=== PATIENT | male | born 1985 | race Caucasian/White ===

== ENCOUNTER 2024-07-28 16:15 | Outpatient (CLI) | payer BC, SELFPAY ==
--- NOTE | ~2024-07-28 | XR_ITS ---
[id number] Ordering provider: Kyrie Rdz, PA History: . LEFT TRAPEZIUS MUSCLE STRAIN . Comparison: None. FINDINGS: VERTEBRAL BODIES: Normal height and alignment. No visible fracture or subluxation. The dens is intact . DISK SPACES: Well maintained. PARASPINOUS SOFT TISSUES: No prevertebral soft tissue swelling. IMPRESSION: No acute osseous abnormality cervical spine. Reviewed, dictated and finalized at location A.
== END 2024-07-28 16:16 | disposition home or self-care (01) ==
PROVIDERS: PCP Physician Assistant; Visit Provider Physician Assistant
DX: S29.012A Strain of muscle and tendon of back wall of thorax, initial encounter (principal)
CPT/HCPCS: 72040

== ENCOUNTER 2025-05-14 11:13 | Emergency (ER) | payer OTHER, BC, SELFPAY ==
--- NOTE | ~2025-05-14 | XR_ITS ---
EXAMINATION: XR shoulder RT min 2V DATE: 05/14/2025 11:38 INDICATION: Right shoulder pain post lifting injury with palpable pop TECHNIQUE: AP internally and externally rotated, AP oblique externally rotated and axillary views of the right shoulder were obtained. COMPARISON: None FINDINGS: Normal alignment. No fracture. Glenohumeral joint is normal. Mild acromioclavicular osteoarthritis. Soft tissues are unremarkable./Portion of the right lung are clear. IMPRESSION: Mild right acromioclavicular osteoarthritis. No acute osseous abnormality. Reviewed, dictated and finalized at location A.
--- NOTE | 2025-05-14 11:20 | ED.UPPEXIN ---
HPI - Extremity Injury (Upper) General Chief Complaint: Extremity Injury, Upper Stated Complaint: shoulder pain Time Seen by Provider: 05/14/25 11:23 Source: patient Mode of arrival: ambulatory Limitations: no limitations History of Present Illness HPI narrative: 40 y/o male presented for c/o right shoulder pain. Onset today while at work. 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 Says he thinks it was dislocated, but not anymore. Pain has improved slightly since onset because he has not been using the arm. Endorses pain with movement only, worse with anterior movement. Could not finish his work. Has not taken anything for pain. denies numbness, tingling, weakness, radiating pain, discoloration, neck pain or back pain. Pt is right hand dominant. Related Data Allergies Allergy/AdvReac Type Severity Reaction Status Date / Time No Known Allergies Allergy Unverified 09/02/16 11:08 Review of Systems Review of Systems: CONSTITUTIONAL: Denies body aches, fever, chills CARDIOVASCULAR: Denies chest pain, palpitations, or edema. RESPIRATORY: Denies cough or dyspnea. SKIN: Denies rash, itching, or wounds. MUSCULOSKELETAL: reports right shoulder pain denies back pain, neck pain NEUROLOGIC: Denies headache, numbness, tingling, or weakness. All systems reviewed & are unremarkable except as noted in HPI and below PMFSH Comments At time of signature, I have reviewed and agree with nursing past medical, surgical, social and family history unless otherwise noted. Please see nursing chart for further information. There is no relevant family history pertinent to the presenting complaint Exam Narrative: GENERAL: Well-appearing CHEST: Speaks in full sentences. No respiratory distress. HEART: Regular rate and rhythm. Normal and equal peripheral pulses. EXTREMITIES: Right shoulder decreased range of motion due to pain; pain reported with >90 degree movement anterior/lateral movement. Pain reported with supination and posterior movement. RUE has normal strength and sensation, equal hand authorization representative. No bruising. No point tenderness. No open wounds or obvious deformity; alignment normal, pulse palpable and equal bilaterally, skin warm, dry, pink. Capillary refill less than 3 seconds. SKIN: Warm, dry, no rash. NEURO: Alert and oriented x3. PSYCH: Normal mood and affect Course Course Emergency Course: Patient is aware of diagnosis, understands and agrees to treatment plan. Anticipatory guidance given. Patient agrees to follow-up as directed and is aware of reasons to seek care at the emergency department. Portions of this record may have been created with voice recognition software Level of Care: Express Care Visit Vital Signs Vital signs: Vital Signs Temperature 97.3 F L 05/14/25 11:24 Pulse Rate 80 05/14/25 11:24 Respiratory Rate 18 05/14/25 11:24 Blood Pressure 134/88 05/14/25 11:24 Pulse Oximetry 98 05/14/25 11:24 Oxygen Delivery Room Air 05/14/25 11:24 Temperature 97.3 F L 05/14/25 11:24 Pulse Rate 80 05/14/25 11:24 Respiratory Rate 18 05/14/25 11:24 Blood Pressure 134/88 05/14/25 11:24 Pulse Oximetry 98 05/14/25 11:24 Oxygen Delivery Room Air 05/14/25 11:24 Reviewed MDM - Extremity Injury (Upper) MDM Narrative Medical decision making narrative: Discussed physical exam findings and xray. Reviewed RX and pt will need to f/u if sx persist. Advised supportive measures and signs/symptoms to go to the ER. Pt is appropriate for outpt treatment and f/u. Differential Diagnosis Differential diagnosis: Likely other (Shoulder dislocation, clavicle fracture, humerus fracture, scapular fracture, acromioclavicular joint injury, rotator cuff tear, bicep tendon rupture, tricep tendon rupture, cervical radiculopathy) Imaging Data Radiologist's impression: Patient: [place] : 1985 MR#: [id number] Age: 40 Acct:[id number] Loc: [facility] ADM Date: 05/14/25Attending Dr: Ordering Physician: Shannon Dejesus APRN Date of Service: 05/14/25 Procedure(s): XR shoulder RT min 2V Accession Number(s): [id number] cc: Shannon Dejesus APRN; RESTAURANT AND BAR MANAGER PHYSICIAN~ EXAMINATION: XR shoulder RT min 2V DATE: 05/14/2025 11:38 INDICATION: Right shoulder pain post lifting injury with palpable pop TECHNIQUE: AP internally and externally rotated, AP oblique externally rotated and axillary views of the right shoulder were obtained. COMPARISON: None FINDINGS: Normal alignment. No fracture. Glenohumeral joint is normal. Mild acromioclavicular osteoarthritis. Soft tissues are unremarkable./Portion of the right lung are clear. IMPRESSION: Mild right acromioclavicular osteoarthritis. No acute osseous abnormality. Discharge Plan Discharge Clinical Impression: Acute shoulder pain Patient Disposition: Home Condition: Stable Instructions: Antibiotic Form, Shoulder Pain (ED) Additional Instructions: Rest. Avoid pushing, pulling, lifting or anything that worsens the symptoms Gentle passive range of motion activity until symptoms are resolved. Tylenol 1000mg every 8 hours as needed You can alternate with ibuprofen 800mg as prescribed Cyclobenzaprine (Flexeril) is a muscle relaxer. Take it as directed. It can cause drowsiness so do not drive or operate machinery until you know how it makes you feel. Alternate ice/heat to the site. Lidocaine or salon pas pain patch or use pain cream like icy/hot or biofreeze. Follow up with technical services specialist as needed in 3 days Recommend establishing with a primary care provider. Go to the ER for worsening symptoms or concerns Patient Language: Tajik Prescriptions: New cyclobenzaprine 10 mg tablet 10 mg PO TID PRN (Reason: muscle spasm) Qty: 10 0RF ibuprofen 800 mg tablet 800 mg PO TID PRN (Reason: pain) Qty: 15 0RF Follow-up/Referrals: Lionel Vyas MD [Physician] - PHYSICIAN,RESTAURANT AND BAR MANAGER [Primary Care Provider] - Stand Alone Forms: Work/School Release IP Time of Disposition: 12:11
[2025-05-14 11:24] VITALS: BP 134/88; PULSE 80; RESP 18; TEMP 36.3; O2SAT 98
== END 2025-05-14 12:22 | disposition home or self-care (01) ==
PROVIDERS: Emergency Provider Nurse Practitioner Family; Referring Provider Family Medicine
DX: M25.511 Pain in right shoulder (principal)
CPT/HCPCS: 73030; 99213; G0463

== ENCOUNTER 2025-06-07 11:43 | Inpatient (IN) | payer BC, SELFPAY ==
[2025-06-07] VITALS (31 sets, daily range): BP systolic 115–157; BP diastolic 69–107; PULSE 64–92; RESP 13–29; TEMP 36.5–36.8; O2SAT 95–99; BMI 26.9
--- NOTE | ~2025-06-07 | XR_ITS ---
Examination: XR chest 1V portable Clinical History: chest pain Comparison: None Technique: Portable AP Findings: Heart size normal. Lungs clear. No acute bony abnormality. IMPRESSION: 1. No acute cardiopulmonary findings given portable technique. Can consider PA and lateral films with deep inspiration if clinical suspicion persists. Reviewed, dictated and finalized at location A.
--- NOTE | 2025-06-07 11:46 | ECG_ITS ---
Test Date: 2025-06-07 11:47:48 Measurements Intervals [place] Rate: 88 P: 51 WI: 170 QRS: -45 QRSD: 91 T: 53 QT: 348 QTc: 422 Interpretive Statements SINUS RHYTHM POSSIBLE LEFT ATRIAL ENLARGEMENT [-0.1mV P-WAVE IN V1/V2] LEFT ANTERIOR FASCICULAR BLOCK [QRS AXIS <= -45, QR IN I, RS IN II] ANTEROSEPTAL MYOCARDIAL INFARCTION , OF INDETERMINATE AGE [40+ ms Q WAVE IN V1-V4] No previous ECG available for comparison Electronically Signed On 06-07-2025 12:26:59 CDT by Aleksandar Rene M.D.
[2025-06-07 12:01] LABS: Hematocrit 50.1 % (42.0-52.0); Hemoglobin 17.2 g/dL (14.0-18.0); Immature Granulocyte Percent A 0.5 % (0-0.5); Lymphocytes Absolute Auto 3.11 K/mm3 (0.9-3.2); Mean Corpuscular HGB Conc 34.3 g/dl (32-36); Mean Corpuscular Hemoglobin 31.2 pg (26-34); Mean Corpuscular Volume 90.9 fl (80-100); Nucleated Red Blood Cells Absolute Auto 0.000 K/mm3 (0.0-0.012); Nucleated Red Blood Cells Perc 0.0 % (0.0-0.2); Platelet Count Result 229 k/mm3 (150-375); Red Blood Count 5.51 M/mm3 (4.6-6.20); White Blood Count 12.1 K/mm3 (4.5-10.0)
[2025-06-07 12:14] LABS: Alanine Aminotransferase 29 U/L (6-50); Albumin Level 4.5 g/dL (3.5-5.1); Alkaline Phosphatase 75 U/L (38-126); Anion Gap 10 mmol/L (4-12); Aspartate Amino Transferase 34 U/L (17-59); Bilirubin,Total 0.4 mg/dL (0.2-1.3); Blood Urea Nitrogen 13 mg/dL (9-20); Calcium 9.2 mg/dL (8.4-10.2); Carbon Dioxide 22 mmol/L (22-30); Chloride 106 mmol/L (98-107); Estimated CRCL calculation 95 ml/min; Estimated Glomerular Filt Rate > 60; Glucose 123 mg/dL (65-110); Potassium 3.8 mmol/L (3.4-5.0); Sodium 138 mmol/L (137-145); Total Protein 7.6 g/dL (6.3-8.2)
[2025-06-07 12:15] LABS: INR 1.0; Prothrombin Time 13.1 Seconds (11.1-14.7)
[2025-06-07 12:16] LABS: Partial Thromboplastin Time 27.9 Seconds (22.3-36.8)
[2025-06-07 12:25] LABS: Troponin I < 0.012 ng/mL (0.000-0.034)
--- NOTE | 2025-06-07 12:25 | ED.CHESTPAIN ---
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 It was otherwise nonradiating however at that time he did note that he had some bilateral tingling in his hands. The pain was 5/10 in severity and he felt dizzy. He was diaphoretic and a co-worker noted that he was read/flushed but this was brief and resolved on reassessment. Not associated with shortness of breath, nausea, vomiting, fevers, chills. He has a chronic cough which he attributes to smoking but otherwise no acute changes. No recent surgeries or trauma. He denies any edema. Not on exogenous hormones. Denies hemoptysis. No prior DVT or PE. He did recently see his primary care physician and had blood work done which showed that his cholesterol was a little elevated. He did use the risk calculator which she had not been a smoker showed low risk and no need to start medication but because he is a smoker the recommendation was to start nutrition are there still having share decision making. He is supposed to undergo further test fair because his hemoglobin was also elevated. He smokes 1 and half to 2 packs per day. Had a stress test when he was in his 20s but otherwise denies underlying respiratory or cardiac issues and does not follow with a municipal court magistrate. This has never happened before. EMS administered aspirin and NTG which helped, currently without symptoms. He takes no prescription medications daily, only 1 omeprazole per day. Cardiac risk factors HTN: No HLD: Yes DM: No Obese: No per height/weight obtained today Smoker: Yes Personal history MT/TIA/CVA: No Fam Hx MT in first degree relative <65yo: Yes, both mother and father Related Data Home Medications ?Medication ?Instructions ?Recorded ?Confirmed ?Last Taken ?Type No Home Medications 06/07/25 06/07/25 Unknown History Allergies Allergy/AdvReac Type Severity Reaction Status Date / Time No Known Allergies Allergy Verified 06/07/25 11:55 [facility] Past Medical History Medical History (Updated 06/08/25 @ 09:34 by Aleksandar Rene MD) Tobacco use GERD (gastroesophageal reflux disease) HLD (hyperlipidemia) Surgical History Surgical History No history of previous surgery Family History Family History Father , 62yo Acute myocardial infarction, Onset Age: 62 Mother H/O heart artery stent Acute myocardial infarction 55 or 57yo Lung cancer Social History Social History Social History: Smoking packs per day: 1.5 Smoking cigarettes per day: 30.0 Smoking status: Current every day smoker Tobacco type: cigarettes Second hand tobacco smoke exposure: Yes Additional smoking assessment comments: 1.5-2 PPD Alcohol intake: never Substance use: never Lack of Transportation: No Lack of Food: Never True Current Housing: I Have Housing Concerned About Future Housing: No Difficulty Paying Gas/Electric Bills: No Difficulty Paying for Meds: No Currently Unemployed: No Education: High School Diploma/GED Difficulty w/ Childcare or Family Care: No Living arrangements: with family Additional living arrangements comments: Occupation/Education: occupation Spiritual care concerns: No Exam Narrative: GENERAL: Well-appearing, well-nourished, and in no acute distress. HEAD: Normocephalic, atraumatic. EYES: Non injected, non icteric ENT: Nares clear, no rhinorrhea or epistaxis. Gross auditory acuity intact. NECK: Supple. No meningismus. CHEST: Speaking in full sentences. No respiratory distress. Lungs clear to auscultation bilaterally without wheezes crackles or focal consolidation appreciated HEART: Regular rate and rhythm. . ABDOMEN: Soft, nondistended. No rigidity or guarding. Not peritoneal EXTREMITIES: Normal range of motion. No lower extremity edema. SKIN: Warm, dry, no rash. NEURO: No focal deficits. Alert and oriented. Answering questions. Following commands. Normal speech without aphasia or dysarthria. PSYCH: Normal mood and affect. Course Vital Signs Vital signs: Vital Signs Temperature 97.7 F 06/07/25 11:47 Pulse Rate 88 06/07/25 11:47 Respiratory Rate 14 06/07/25 11:47 Blood Pressure 157/107 H 06/07/25 11:47 Pulse Oximetry 97 06/07/25 11:47 Oxygen Delivery Room Air 06/07/25 11:47 Temperature 98.1 F 06/08/25 08:16 Pulse Rate 59 L 06/08/25 14:15 Respiratory Rate 20 06/08/25 14:15 Blood Pressure 121/78 06/08/25 14:15 Pulse Oximetry 98 06/08/25 14:15 Oxygen Delivery Room Air 06/08/25 14:15 MDM - Chest Pain MDM Narrative Medical decision making narrative: Patient presents with acute onset substernal chest pain that occurred while he was at work/driving, essentially at rest. In the emergency department he is afebrile vital signs notable for hypertension. HEART SCORE History 2 highly suspicious 1 moderately suspicious 0 slightly suspicious History score [address] depression/elevation not due to LBBB, LVH, or digoxin [address] depression but LBBB, LVH, nonspecific repolarization changes 0 normal ECG score 0 Age 2 >/= 65 1 45-64 0 <45 Age score 0 Risk factors (HTN, hypercholesterolemia, DM, obesity with BMI >30, current smoker or cessation </=3mo), positive fam hx with parent or sibling with CVD before age 65, atherosclerotic disease (prior MT, PCI/CABG, CVA/TIA, or peripheral arterial disease) 2 >/= 3 risk factors or history of atherosclerotic dz 1 - 1-2 risk factors 0 no known risk factors Risk factor score 2 Initial Troponin 2 >3 times normal limit 1 1-3 times normal limit 0 less than or equal to normal limit Troponin score 0 Total HEART Score 3 Leukocytosis. PERC Rule Age greater than or equal to 50: No HR greater than or equal to 100: NO O2 sat room air <95%:NO Unilateral leg swelling:NO Hemoptysis:nO Recent surgery or trauma less than 4 wks ago requiring tx with general anesthesia: No Prior PE or DVT: No Hormone use (OCP, HRT or estrogenic hormone use in M/F patients): No Will defer further workup for PE given patient is low risk and no report of shortness of breath. Repeat troponin is now elevated. Patient will require admission given the NSTEMI periods he is reassessed and continues to be asymptomatic. Symptoms have not recurred. Heparin ordered and patient will be admitted to the IMU. Discussed with on-call hospitalist NICK Frances. Differential Diagnosis Differential diagnosis: Likely pneumothorax, stable angina, unstable angina pectoris, atypical chest pain, st elevation myocardial infarction, costochondritis, chest pain, biliary colic and other (GERD/gastritis; considered PE; low suspicion heart failure or acute viral syndrome) Lab Data Attestation: I reviewed the patient's lab results. 06/08/25 07:38 06/08/25 07:38 Labs: Lab Results 06/07/25 06/07/25 06/07/25 Range/Units 11:53 11:54 14:25 WBC 12.1 H (4.5-10.0) K/mm3 RBC 5.51 (4.6-6.20) M/mm3 Hgb 17.2 (14.0-18.0) g/dL Hct 50.1 (42.0-52.0) % MCV 90.9 (80-100) fl MCH 31.2 (26-34) pg MCHC 34.3 (32-36) g/dl RDW 13.2 (11.5-14.5) % Plt Count 229 (150-375) k/mm3 MPV 9.8 (7.4-10.4) fl Immature Gran % (Auto) 0.5 (0-0.5) % Neut % (Auto) 62.7 (45.5-73.1) % Lymph % (Auto) 25.6 (18.3-44.2) % [place] % (Auto) 6.1 (2.6-8.5) % Eos % (Auto) 4.0 (0-4.4) % Baso % (Auto) 1.1 (0.2-1.2) % Lymph # (Auto) 3.11 (0.9-3.2) K/mm3 [place] # (Auto) 0.7 H (0.1-0.6) K/mm3 Eos # (Auto) 0.5 H (0-0.3) K/mm3 Baso # (Auto) 0.1 (0.0-0.1) K/mm3 Abs Immat Gran (auto) 0.06 H (0.00-0.031) K/mm3 Absolute Neuts (auto) 7.6 H (1.3-6.7) K/mm3 Absolute Nucleated RBC 0.000 (0.0-0.012) K/mm3 Nucleated RBC % 0.0 (0.0-0.2) % PT 13.1 (11.1-14.7) Seconds INR 1.0 APTT 27.9 (22.3-36.8) Seconds Sodium 138 (137-145) mmol/L Potassium 3.8 (3.4-5.0) mmol/L Chloride 106 (98-107) mmol/L Carbon Dioxide 22 (22-30) mmol/L Anion Gap 10 (4-12) mmol/L BUN 13 (9-20) mg/dL Creatinine 1.02 (0.7-1.3) mg/dL Estim Creat Clear Calc 95 ml/min Estimated GFR > 60 (59 - ) Glucose 123 H (65-110) mg/dL Calcium 9.2 (8.4-10.2) mg/dL Total Bilirubin 0.4 (0.2-1.3) mg/dL AST 34 (17-59) U/L ALT 29 (6-50) U/L Alkaline Phosphatase 75 (38-126) U/L Troponin I < 0.012 0.647 H* D (0.000-0.034) ng/mL Total Protein 7.6 (6.3-8.2) g/dL Albumin 4.5 (3.5-5.1) g/dL Lipase 25 (23-300) U/L Urine Color (Yellow) Urine Appearance (Clear) Urine pH (5.0-9.0) Ur Specific [place] (1.001-1.035) Urine Protein (Negative) mg/dL Urine Glucose (UA) (Negative) mg/dL Urine Ketones (Negative) mg/dL Ur Blood (Man) (Negative) Urine Nitrate (Negative) Urine Bilirubin (Negative) Urine Urobilinogen (<2.0) mg/dL Leukocyte Esterase Rfl (Negative) INDU/UL Urine RBC (0-2) /hpf Urine WBC (0-3) /hpf Ur Squamous Epith Cells (Few) /hpf Urine Bacteria /hpf Urine Casts Urine Opiates Screen (Negative) Urine Methadone Screen (Negative) Ur Barbiturates Screen (Negative) Ur Phencyclidine Scrn (Negative) Ur Amphetamine Screen (Negative) U Benzodiazepines Scrn (Negative) Urine Cocaine Screen (Negative) U Cannabinoids Screen (Negative) 06/07/25 Range/Units 15:49 WBC (4.5-10.0) K/mm3 RBC (4.6-6.20) M/mm3 Hgb (14.0-18.0) g/dL Hct (42.0-52.0) % MCV (80-100) fl MCH (26-34) pg MCHC (32-36) g/dl RDW (11.5-14.5) % Plt Count (150-375) k/mm3 MPV (7.4-10.4) fl Immature Gran % (Auto) (0-0.5) % Neut % (Auto) (45.5-73.1) % Lymph % (Auto) (18.3-44.2) % [place] % (Auto) (2.6-8.5) % Eos % (Auto) (0-4.4) % Baso % (Auto) (0.2-1.2) % Lymph # (Auto) (0.9-3.2) K/mm3 [place] # (Auto) (0.1-0.6) K/mm3 Eos # (Auto) (0-0.3) K/mm3 Baso # (Auto) (0.0-0.1) K/mm3 Abs Immat Gran (auto) (0.00-0.031) K/mm3 Absolute Neuts (auto) (1.3-6.7) K/mm3 Absolute Nucleated RBC (0.0-0.012) K/mm3 Nucleated RBC % (0.0-0.2) % PT (11.1-14.7) Seconds INR APTT (22.3-36.8) Seconds Sodium (137-145) mmol/L Potassium (3.4-5.0) mmol/L Chloride (98-107) mmol/L Carbon Dioxide (22-30) mmol/L Anion Gap (4-12) mmol/L BUN (9-20) mg/dL Creatinine (0.7-1.3) mg/dL Estim Creat Clear Calc ml/min Estimated GFR (59 - ) Glucose (65-110) mg/dL Calcium (8.4-10.2) mg/dL Total Bilirubin (0.2-1.3) mg/dL AST (17-59) U/L ALT (6-50) U/L Alkaline Phosphatase (38-126) U/L Troponin I (0.000-0.034) ng/mL Total Protein (6.3-8.2) g/dL Albumin (3.5-5.1) g/dL Lipase (23-300) U/L Urine Color Dark yellow (Yellow) Urine Appearance Clear (Clear) Urine pH 5.5 (5.0-9.0) Ur Specific [place] 1.034 (1.001-1.035) Urine Protein Trace (Negative) mg/dL Urine Glucose (UA) Negative (Negative) mg/dL Urine Ketones Trace H (Negative) mg/dL Ur Blood (Man) Negative (Negative) Urine Nitrate Negative (Negative) Urine Bilirubin Negative (Negative) Urine Urobilinogen 1.0 (<2.0) mg/dL Leukocyte Esterase Rfl Negative (Negative) INDU/UL Urine RBC 0-2 (0-2) /hpf Urine WBC 0-5 (0-3) /hpf Ur Squamous Epith Cells None seen (Few) /hpf Urine Bacteria None seen /hpf Urine Casts 0-2 Urine Opiates Screen Negative (Negative) Urine Methadone Screen Negative (Negative) Ur Barbiturates Screen Negative (Negative) Ur Phencyclidine Scrn Negative (Negative) Ur Amphetamine Screen Negative (Negative) U Benzodiazepines Scrn Negative (Negative) Urine Cocaine Screen Negative (Negative) U Cannabinoids Screen Negative (Negative) Imaging Data Radiologist's impression: IMPRESSION: 1. No acute cardiopulmonary findings given portable technique. Can consider PA and lateral films with deep inspiration if clinical suspicion persists. ECG Data EKG #1: Attestation: I personally reviewed and interpreted this ECG as follows: ECG completion date: 06/07/25 ECG completion time: 11:47 Prior ECG tracings: not available for review (No prior for comparison) Interpretation: Normal sinus rhythm at a rate of 88 beats per minute. TX interval 170. QRS 91. QT/QTC 348/422. Poor R-wave progression across the precordial leads. No T-wave inversions. Left anterior fascicular block with rS complexes in leads II, III, aVF (small R waves, deep S waves), qR complexes in lead I , avL (small Q waves and tall R waves) and left axis deviation with Leads II, III and aVF negative and leads I and aVL positive. EKG #2: Attestation: I personally reviewed and interpreted this ECG as follows: ECG completion date: 06/07/25 ECG completion time: 14:23 Interpretation: Normal sinus rhythm at a rate of 72 beats per minute. TX interval 178. QRS 88. QT/QTC 374/412. Poor R-wave progression across the precordial leads. Left anterior fascicular block with rS complexes in leads II, III, aVF (small R waves, deep S waves), qR complexes in lead I , avL (small Q waves and tall R waves) and left axis deviation with Leads II, III and aVF negative and leads I and aVL positive. No T-wave inversions. Discharge Plan Discharge Clinical Impression: Chest pain, Leukocytosis, Acute non-ST elevation myocardial infarction (NSTEMI) Patient Disposition: Still a Patient Condition: Stable
[2025-06-07 13:09] LABS: Lipase 25 U/L (23-300)
--- NOTE | 2025-06-07 13:20 | PC.NURSE ---
Pt given urinal and asked to give urine sample.
--- OUTSIDE RECORDS SUMMARY | 2025-06-07 13:26 | XMS_ITS | Clinical Summary ---
Author Organization [facility] Address [address] [place] [id number] Care Team Providers Care Manual Lathe Operator Name Role Phone Lanre Garza Primary Care Provider [phone] Encounters Date Type Department Care Team Description 05/28/2025 9:36 AM CDT - 05/28/2025 11:59 PM CDT Hospital Encounter [facility] [address] [facility] [place] [address] Lanre Garza PA Discharge Disposition: Home or Self Care (Routine Discharge) 05/28/2025 Travel from Last 3 Months Social History Tobacco Use Types Packs/Day Years Used Date Smoking Tobacco: Never Assessed Sex and Gender Information Value Date Recorded Sex Assigned at Male 05/19/2025 10:32 AM CDT Legal Sex Male 10:31 AM CDT Gender Identity Not on file Sexual Orientation Not on file Plan of Treatment Health Maintenance Due Date Last Done Comments Annual Physical 02/27/1987 DTaP, Tdap and Td Vaccines (5 - Tdap) 05/19/1999 05/18/1999, 05/23/1989, 06/18/1988, Additional history exists Hepatitis C 02/27/2002 Hepatitis B Vaccines (1 of 3 - 19+ 3-dose series) 02/27/2003 HPV Vaccines (1 - 3-dose SCDM series) 02/27/2011 COVID-19 Vaccine ( - season) 2025 Meningococcal B Vaccine Aged Out No l onger eligible based on patient's age to complete this topic Meningococcal Vaccine Aged Out No [place] phill eligible based on patient's age to complete this topic Pneumococcal Vaccine: Pediatrics (0 to 5 Years) and At-Risk Patients (6 to 49 Years) Aged Out No longer eligible based on patient's age to complete this topic RSV Immunizations Under 20 Months Aged Out No longer eligible based on patient's age to complete this topic Insurance [facility] Care Teams Manual Lathe Operator Relationship Specialty Start Date End Date Lanre Garza PA [address] [place] [phone] PCP - General PHYSICIAN RISK MANAGEMENT CONSULTANT 05/28/25
--- NOTE | 2025-06-07 14:19 | ECG_ITS ---
Test Date: 2025-06-07 14:23:50 Measurements Intervals [place] Rate: 72 P: 46 SC: 178 QRS: -57 QRSD: 88 T: 43 QT: 374 QTc: 412 Interpretive Statements SINUS RHYTHM POSSIBLE LEFT ATRIAL ENLARGEMENT [-0.1mV P-WAVE IN V1/V2] LEFT ANTERIOR FASCICULAR BLOCK [QRS AXIS <= -45, QR IN I, RS IN II] ABNORMAL ECG Compared to ECG 06/07/2025 11:47:48 No significant changes Electronically Signed On 06-09-2025 15:18:23 CDT by Colby Hernandez M.D.
[2025-06-07 15:30] LABS: Troponin I 0.647 ng/mL (0.000-0.034)
[2025-06-07 16:05] LABS: Add Urine Microscopic? YES; Appearance Urine Clear (Clear); Glucose Urine UA Negative (Negative); Leukocyte Esterase Ur Negative LEU/UL (Negative); Nitrate Urine Negative (Negative); Non Pathogenic Casts 0-2; Specific Grav Ur 1.034 (1.001-1.035)
[2025-06-07 16:22] LABS: Cannabinoid Screen Urine Negative (Negative)
[2025-06-07] MEDS: HEPARIN SOD/D5W 100 UNITS/ML 25,000 UNITS/250 ML BAG 10 UNITS IV CONT (16:48)
--- NOTE | 2025-06-07 17:24 | PM.IMHP ---
H&P: HPI History of Present Illness Date/Time: 06/07/25 17:24 Chief Complaint: Chest Pain Narrative: 40 y/o M with PMH of HLD, GERD, and an everyday smoker (1.5-2 PPD) presents here with chest pain. The patient presents here via EMS on 06/07 for further evaluation of chest pain. 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 He describes the chest pain as sharp, midsternal, radiation to his bilateral hands that he described as tingling, intermittent, would last for a few minutes then taper off and eventually return, and no aggravating or alleviating factors. He reported associated dizziness, mild diaphoresis, and a co-worker also noted that the patient had facial flushing. He denies associated shortness of breath, fever, chills, nausea, vomiting, or lightheadedness. He denies any previous cardiac history. He has underwent a stress test in his 20s that was unremarkable. He was given aspirin and nitroglycerin prior to arrival by EMS which resolved his pain and arrived symptom free. He denies any previous episodes similar to today's chest pain. He reports that his mom and dad have both had heart attacks, believes the MIs likely occurred in their 50s. Initial VS at presentation: 97.7? F, HR 88, RR 14, 157/107, and 97% on room air. ED workup showed: WBC 12.1, normal coags, no significant electrolyte derangements, creatinine 1.02 and GFR >60, glucose 123, initial troponin negative and repeat was 0.647, UA showed trace ketones otherwise unremarkable, UDS negative. CXR showed no acute cardiopulmonary findings. EKG showed sinus rhythm, possible left atrial enlargement, left anterior fascicular block, anterior septal [place] infarction of indeterminate age. Review of Systems Review of Systems: All systems reviewed & are unremarkable except as noted in HPI and below PMFSH Past Medical History Medical History Tobacco use GERD (gastroesophageal reflux disease) HLD (hyperlipidemia) Surgical History Surgical History No history of previous surgery Family History Family History Father , 62yo Acute myocardial infarction, Onset Age: 62 Mother H/O heart artery stent Acute myocardial infarction 55 or 57yo Lung cancer Social History Social History Social History: Smoking packs per day: 1.5 Smoking cigarettes per day: 30.0 Smoking status: Current every day smoker Tobacco type: cigarettes Second hand tobacco smoke exposure: Yes Additional smoking assessment comments: 1.5-2 PPD Alcohol intake: never Substance use: never Lack of Transportation: No Lack of Food: Never True Current Housing: I Have Housing Concerned About Future Housing: No Difficulty Paying Gas/Electric Bills: No Difficulty Paying for Meds: No Currently Unemployed: No Education: High School Diploma/GED Difficulty w/ Childcare or Family Care: No Living arrangements: with family Additional living arrangements comments: Occupation/Education: occupation Spiritual care concerns: No Meds Home Medications and Allergies Home Medications ?Medication ?Instructions ?Recorded ?Confirmed ?Type No Home Medications 06/07/25 06/07/25 History Allergies Allergy/AdvReac Type Severity Reaction Status Date / Time No Known Allergies Allergy Verified 06/07/25 11:55 Vital Signs Vital Signs - 24 hr 06/07/25 11:47 06/07/25 11:51 06/07/25 11:52 Temperature 97.7 F Pulse Rate 88 89 Respiratory Rate 14 13 Blood Pressure 157/107 H Pulse Oximetry 97 98 98 Oxygen Delivery Room Air Room Air 06/07/25 12:00 06/07/25 12:15 06/07/25 12:16 Temperature Pulse Rate 92 84 83 Respiratory Rate 20 29 H 26 H Blood Pressure 130/90 Pulse Oximetry 98 95 95 Oxygen Delivery 06/07/25 12:31 06/07/25 12:45 06/07/25 12:46 Temperature Pulse Rate 92 80 79 Respiratory Rate 21 H 25 H 21 H Blood Pressure 131/85 Pulse Oximetry 97 96 98 Oxygen Delivery 06/07/25 13:00 06/07/25 13:01 06/07/25 13:15 Temperature Pulse Rate 72 71 68 Respiratory Rate 27 H 26 H 25 H Blood Pressure 122/88 121/88 Pulse Oximetry 97 97 96 Oxygen Delivery 06/07/25 13:16 06/07/25 13:30 06/07/25 13:31 Temperature Pulse Rate 72 69 71 Respiratory Rate 26 H 27 H 27 H Blood Pressure 117/77 Pulse Oximetry 99 95 97 Oxygen Delivery 06/07/25 13:45 06/07/25 13:46 06/07/25 14:00 Temperature Pulse Rate 71 68 72 Respiratory Rate 26 H 27 H 24 H Blood Pressure 123/84 119/87 Pulse Oximetry 96 97 97 Oxygen Delivery 06/07/25 14:01 06/07/25 14:24 06/07/25 14:30 Temperature Pulse Rate 64 75 Respiratory Rate 21 H 17 Blood Pressure Pulse Oximetry 96 99 98 Oxygen Delivery 06/07/25 14:45 06/07/25 15:00 06/07/25 15:15 Temperature Pulse Rate 73 69 70 Respiratory Rate 16 27 H 26 H Blood Pressure Pulse Oximetry 99 99 98 Oxygen Delivery 06/07/25 15:30 Temperature Pulse Rate 66 Respiratory Rate 26 H Blood Pressure Pulse Oximetry 97 Oxygen Delivery Exam Const: General: comfortable and no acute distress Other: , male, nontoxic appearance HENMT: Face/Nose/Sinus: Normal nares present Mouth: Yes moist mucous membranes Eyes: General: appearance normal, both eyes and all related structures Sclera: sclerae normal Pupils: Equal, round and reactive pupils present EOM: EOMs intact bilaterally Resp: Effort & Inspection: normal respiratory effort Auscultation: clear to auscultation bilaterally Cardio: Rate: regular rate Rhythm: regular rhythm Other: S1-S2 present without murmur, rub, ectopy GI: Other: Abdomen soft, nondistended, nontender. Normoactive bowel sounds in all quadrants. Skin: General skin exam: normal color and no rashes or lesions noted Wounds: no wounds Neuro: Speech: normal speech Motor exam (neuro): 5/5 motor strength present throughout Sensory Exam: normal sensation Other: A&O x4 Extrem: General: normal to inspection Psych: Mental Status: mental status grossly normal Affect: normal affect Other: Good insight and judgment, pleasant H&P: Results Labs Labs: Short CBC 06/07/25 Range/Units 11:53 WBC 12.1 H (4.5-10.0) K/mm3 Hgb 17.2 (14.0-18.0) g/dL Hct 50.1 (42.0-52.0) % Plt Count 229 (150-375) k/mm3 [facility] 06/07/25 11:54 Sodium 138 Potassium 3.8 Chloride 106 Carbon Dioxide 22 BUN 13 Creatinine 1.02 Glucose 123 H Calcium 9.2 Cardiac Enzymes 06/07/25 06/07/25 Range/Units 11:54 14:25 Troponin I < 0.012 0.647 H* D (0.000-0.034) ng/mL Liver Function 06/07/25 Range/Units 11:54 Total Bilirubin 0.4 (0.2-1.3) mg/dL AST 34 (17-59) U/L ALT 29 (6-50) U/L Alkaline Phosphatase 75 (38-126) U/L Albumin 4.5 (3.5-5.1) g/dL Urine 06/07/25 Range/Units 15:49 Urine Color Dark yellow (Yellow) Urine Appearance Clear (Clear) Urine pH 5.5 (5.0-9.0) Ur Specific [place] 1.034 (1.001-1.035) Urine Protein Trace (Negative) mg/dL Urine Glucose (UA) Negative (Negative) mg/dL Assessment and Plan Assessment and plan (1) Acute non-ST elevation myocardial infarction (NSTEMI): Code(s): I21.4 - Non-ST elevation (NSTEMI) myocardial infarction Status: Acute Assessment and Plan: Patient presented with chest pain, mild diaphoresis, facial flushing, with radiation that he described as tingling to his bilateral upper extremities. Resolved with nitroglycerin and aspirin. No previously known cardiac history. Initial troponin negative, however significantly increasing. Cardiology contacted. Will make patient NPO at midnight as he will likely need a cardiac catheterization. Patient denies recurrence of chest pain and is resting comfortably. - EKG, initial: sinus rhythm, possible left atrial enlargement, left anterior fascicular block, anterior septal OK infarction of indeterminate age. - EKG, repeat (#2): Unchanged appearance compared to prior, awaiting formal read - EKG, repeat (#3): Per my personal review to there was minor ST depression in lead 2, now resolved. Awaiting formal read. - CXR: No acute cardiopulmonary findings given portable technique. Can consider PA and lateral films with deep inspiration if clinical suspicion persists. - Troponin: <0.012 -> 0.647 -> 3.730 - ASA 324 given by EMS -> 81 daily - SL nitro PRN - cardiology consulted, awaiting recs - started on heparin gtt - NPO at midnight - telemetry monitoring (2) Tobacco use: Code(s): Z72.0 - Tobacco use Status: Acute Assessment and Plan: - 1.5-2 PPD - nicotine patch p.r.n. Plan Diet: Heart healthy, NPO at midnight GI Prophylaxis: n/a DVT Prophylaxis: heparin gtt IV fluids: none Lines/Tubes: Peripheral IV Code Status: Full code Quality VTE Prophylaxis VTE prophylaxis: pharmacologic ordered Hospitalist [facility] Advance Care Plan I have confirmed that the patient's Advanced Care Plan is present, code status is documented, or surrogate decision maker is listed in patient medical record.: Yes Medication Reconciliation I have utilized all available resources to obtain, update and review the patients current medications (includes all prescriptions, OTC, herbals, cannabis, and nutritional supplements).: Yes
[2025-06-07 19:02] LABS: Troponin I 3.730 ng/mL (0.000-0.034)
--- NOTE | 2025-06-07 19:09 | ECG_ITS ---
Test Date: 2025-06-07 19:14:15 Measurements Intervals [place] Rate: 68 P: 44 NE: 204 QRS: -26 QRSD: 100 T: 57 QT: 357 QTc: 381 Interpretive Statements SINUS RHYTHM LEFT ANTERIOR FASCICULAR BLOCK ABNORMAL ECG Compared to ECG 06/07/2025 14:23:50 NO SIGNIFICANT DIFFERENCE Electronically Signed On 06-09-2025 15:26:42 CDT by Colby Hernandez M.D.
--- NOTE | 2025-06-07 19:12 | PC.NURSE ---
NOEMY Kevin called related to elevated troponin level from 0.647 to 3.73. Orders to get Troponin level at 2300pm (every 4 hours until peak) and STAT EKG. Cardiology being contacted at this time to report new admission and consult.
[2025-06-07] MEDS: ATORVASTATIN 40 MG TABLET PO (19:52)
--- NOTE | 2025-06-07 22:55 | ECG_ITS ---
Test Date: 2025-06-07 23:03:20 Measurements Intervals [place] Rate: 67 P: 48 [place]: 198 QRS: -40 QRSD: 91 T: 46 QT: 385 QTc: 409 Interpretive Statements SINUS RHYTHM LEFT ANTERIOR FASCICULAR BLOCK ABNORMAL ECG Compared to ECG 06/07/2025 19:14:15 NO DIFFERENCE Electronically Signed On 06-09-2025 15:28:51 CDT by Colby Hernandez M.D.
[2025-06-07 23:33] LABS: Troponin I 2.670 ng/mL (0.000-0.034)
[2025-06-08] VITALS (25 sets, daily range): BP systolic 105–130; BP diastolic 73–89; PULSE 52–70; RESP 12–24; TEMP 36.3–36.9; O2SAT 96–98
--- NOTE | 2025-06-08 | ECHO_ITS ---
Patient Info Name: [place] Age: 40 years : 1985 Gender: Male Ht: 73 in Wt: 203 lbs BSA: 2.19 m2 BP: 126 / 73 mmHg Heart Rhythm: Sinus Rhythm Technical Quality: Good Exam Date: 06/08/2025 3:18 PM Patient Status: I Admit Date: 06/07/2025 Exam Type: CA echo doppler color flow Complete two-dimensional, color flow and Doppler transthoracic echocardiogram is performed. Staff Referring Physician: Lester Das Experience Design Director: Faisal Chaudhari III Attending Provider: Robbin Bear Summary 1. Complete two-dimensional, color flow and Doppler transthoracic echocardiogram is performed. 2. Unremarkable echocardiogram. 3. No ischemic wall motion abnormalities. Left Ventricle Left ventricular chamber dimension is normal. Left ventricular systolic function is normal, estimated at 55-60. The left ventricular diastolic function is normal. Right Ventricle Right ventricular chamber dimension is normal. Left Atria Left atrial chamber dimension is normal. Right Atria Right atrial chamber dimension is normal. Aortic Valve The aortic valve is normal. Pulmonic Valve The pulmonic valve is normal. Mitral Valve The mitral valve has normal leaflets. Tricuspid Valve The tricuspid valve leaflets are normal. Pericardium/Pleural The pericardium appears normal. Aorta The aortic root size at the sinus of Valsalva is normal. Left Ventricular Outflow Tract Name Value Normal LVOT 2D LVOT Diameter 2.0 cm LVOT Doppler LVOT Peak Velocity 128 cm/s LVOT Peak Gradient 7 mmHg LVOT Mean Gradient 3 mmHg LVOT VTI 24 cm LVOT VTI/AV VTI Ratio 0.9 LVOT Stroke Volume 77 ml LVOT CO 15.5 l/min LVOT CI 7.1 l/min/m2 Pulmonic Valve Name Value Normal PV Doppler PV Peak Velocity 83 cm/s PV Peak Gradient 3 mmHg PV Mean Gradient 2 mmHg Mitral Valve Name Value Normal MV Doppler MV Peak Gradient 2 mmHg MV Mean Gradient 1 mmHg MV Area (Cont Eq VTI) 2.9 cm2 MV Diastolic Function MV E Peak Velocity 61 cm/s MV A Peak Velocity 40 cm/s MV E/A 1.5 MV Decel Time (PW) 272 ms MV Annular TDI MV E/e' (Septal) 7.3 MV E/e' (Lateral) 4.3 MV E/e' (Average) 5.8 Tricuspid Valve Name Value Normal TV Annular TDI TV Lateral Kelsi s' Velocity 12.8 cm/s >=9.5 Aortic Valve Name Value Normal AV Doppler AV Peak Velocity 132 cm/s AV Peak Gradient 7 mmHg AV Mean Gradient 4 mmHg AV VTI 27 cm AV Area (Cont Eq VTI) 2.8 cm2 >=3.0 AV Area (Cont Eq Lauri) 3.2 cm2 AV DI (Lauri) 0.97 AV Regurgitation 2D LVOT Area 3.3 cm2 Ventricles Name Value Normal LV Dimensions 2D/MM IVS Diastolic Thickness (2D) 1.1 cm 0.6-1.0 LVID Diastole (2D) 5.1 cm 4.2-5.8 LVIW Diastolic Thickness (2D) 1.1 cm 0.6-1.0 LVID Systole (2D) 3.7 cm 2.5-4.0 LVOT Diameter 2.0 cm LV Mass (2D Cubed) 221.71 g 88.00-224.00 LV Mass Index (2D Cubed) 101 g/m2 49-115 Relative Wall Thickness (2D) 0.44 <=0.42 LV Fractional Shortening/Ejection Fraction 2D/MM LV Fractional Shortening (2D) 28 % 25-43 LV EF (2D Teichholz) 54 % LV Diastolic Volume (4C MOD) 126 ml LV EF (4C MOD) 62 % LV Diastolic Volume (2C MOD) 116 ml LV EF (2C MOD) 65 % LV Diastolic Volume (BP MOD) 123 ml 62-150 LV Diastolic Volume Index (BP MOD) 56 ml/m2 34-74 LV Systolic Volume (BP MOD) 45 ml 21-61 LV Systolic Volume Index (BP MOD) 21 ml/m2 11-31 LV EF (BP MOD) 63 % 52-72 LV Diastolic Length (4C) 7.9 cm LV Systolic Length (4C) 7.0 cm LV Stroke Volume (4C MOD) 77 ml Atria Name Value Normal LA Dimensions LA Volume (4C A-L) 86 ml LA Volume (BP A-L) 76 ml RA Dimensions RA Systolic Major [place] Length (4C) 5.2 cm 2.1-2.7 RA Area (4C) 18.9 cm2 <=18.0 Report Signatures
[2025-06-08 01:16] LABS: Hematocrit 49.4 % (42.0-52.0); Hemoglobin 17.0 g/dL (14.0-18.0); Immature Granulocyte Percent A 4.3 % (0-0.5); Lymphocytes Absolute Auto 3.63 K/mm3 (0.9-3.2); Mean Corpuscular HGB Conc 34.4 g/dl (32-36); Mean Corpuscular Hemoglobin 31.7 pg (26-34); Mean Corpuscular Volume 92.2 fl (80-100); Nucleated Red Blood Cells Absolute Auto 0.000 K/mm3 (0.0-0.012); Nucleated Red Blood Cells Perc 0.0 % (0.0-0.2); Platelet Count Result 212 k/mm3 (150-375); Red Blood Count 5.36 M/mm3 (4.6-6.20); White Blood Count 13.1 K/mm3 (4.5-10.0)
[2025-06-08 01:20] LABS: Alanine Aminotransferase 27 U/L (6-50); Albumin Level 4.0 g/dL (3.5-5.1); Alkaline Phosphatase 85 U/L (38-126); Anion Gap 6 mmol/L (4-12); Aspartate Amino Transferase 43 U/L (17-59); Bilirubin,Total 0.3 mg/dL (0.2-1.3); Blood Urea Nitrogen 14 mg/dL (9-20); Calcium 8.9 mg/dL (8.4-10.2); Carbon Dioxide 24 mmol/L (22-30); Chloride 107 mmol/L (98-107); Estimated CRCL calculation 114 ml/min; Estimated Glomerular Filt Rate > 60; Glucose 98 mg/dL (65-110); Potassium 3.8 mmol/L (3.4-5.0); Sodium 137 mmol/L (137-145); Total Protein 7.0 g/dL (6.3-8.2)
[2025-06-08 01:28] LABS: Partial Thromboplastin Time 35.9 Seconds (22.3-36.8)
[2025-06-08 08:12] LABS: Hematocrit 51.8 % (42.0-52.0); Hemoglobin 17.5 g/dL (14.0-18.0); Immature Granulocyte Percent A 0.4 % (0-0.5); Lymphocytes Absolute Auto 2.72 K/mm3 (0.9-3.2); Mean Corpuscular HGB Conc 33.8 g/dl (32-36); Mean Corpuscular Hemoglobin 31.1 pg (26-34); Mean Corpuscular Volume 92.2 fl (80-100); Nucleated Red Blood Cells Absolute Auto 0.000 K/mm3 (0.0-0.012); Nucleated Red Blood Cells Perc 0.0 % (0.0-0.2); Platelet Count Result 217 k/mm3 (150-375); Red Blood Count 5.62 M/mm3 (4.6-6.20); White Blood Count 8.3 K/mm3 (4.5-10.0)
[2025-06-08 08:14] LABS: Anion Gap 6 mmol/L (4-12); Blood Urea Nitrogen 12 mg/dL (9-20); Calcium 9.3 mg/dL (8.4-10.2); Carbon Dioxide 25 mmol/L (22-30); Chloride 106 mmol/L (98-107); Estimated CRCL calculation 113 ml/min; Estimated Glomerular Filt Rate > 60; Glucose 93 mg/dL (65-110); Magnesium 2.1 mg/dL (1.6-2.3); Potassium 4.2 mmol/L (3.4-5.0); Sodium 137 mmol/L (137-145)
[2025-06-08 08:33] LABS: Partial Thromboplastin Time 33.0 Seconds (22.3-36.8)
[2025-06-08] MEDS: ASPIRIN 81 MG ENTERIC TABLET PO (08:34)
[2025-06-08] MEDS: ATORVASTATIN 40 MG TABLET PO (08:34)
--- NOTE | 2025-06-08 09:03 | PC.NURSE ---
Pt to animal laboratory helper via stretcher. Heparin gtt paused by animal laboratory helper RN.
--- NOTE | 2025-06-08 09:29 | P.CONCA_ITS ---
Assessment and Plan Assessment and plan (1) Chest pain: Code(s): R07.9 - Chest pain, unspecified Status: Acute (2) Acute non-ST elevation myocardial infarction (NSTEMI): Code(s): I21.4 - Non-ST elevation (NSTEMI) myocardial infarction Status: Acute (3) Tobacco use: Code(s): Z72.0 - Tobacco use Status: Acute (4) HLD (hyperlipidemia): Code(s): E78.5 - Hyperlipidemia, unspecified Status: Acute Plan 40-year-old man with strong family history of coronary artery disease and active tobacco abuse presents with chest discomfort NSTEMI -on aspirin 81 mg p.o. daily and heparin drip -we discussed his diagnosis along with his risk factors -we discussed the risk, benefits, alternatives of cardiac catheterization with possible PCI -after full review and all questions were answered, patient agreed to proceed forward with cardiac catheterization with possible PCI -the heart rate does not allow for additional beta blockade -obtain transthoracic echocardiogram Dyslipidemia -obtain for lipid panel and A1c -start atorvastatin 40 mg every evening Active tobacco abuse -we discussed that tobacco cessation is essential to lowering risk of downstream adverse health events to which he has agreed and mention that he will be starting medication help with cessation History of Present Illness History of Present Illness Consult date/time: 06/08/25 09:29 Requesting physician: Yvrose Talbot APRN Consult reason: chest pain Reason For Visit: nstemi Narrative: 40-year-old man with strong family history of coronary artery disease and active tobacco abuse presents with chest discomfort. Yesterday while driving he developed substernal chest pressure that lasted for a few minutes. It resolved by itself however did reoccur when he got out of his truck and started ambulating. Once again it lasted for about 5 minutes before resolving on its own. He was on his way to the emergency room when the chest pain occurred again at which point he decided to call EMS and was transported to the ER via EMS. He was given sublingual nitro which did alleviate the chest discomfort to a small degree however it was not until an hour afterwards when he was on heparin drip that the chest discomfort had fully resolved. Denies any shortness of breath or syncopal events. Not physically very active. Review of Systems 2 Cardiovascular: Cardiovascular: Reports as per HPI Respiratory: Respiratory: Reports as per HPI [facility] Past Medical History Medical History (Updated 06/08/25 @ 09:34 by Aleksandar Rene MD) Tobacco use GERD (gastroesophageal reflux disease) HLD (hyperlipidemia) Surgical History Surgical History No history of previous surgery Family History Family History Father , 62yo Acute myocardial infarction, Onset Age: 62 Mother H/O heart artery stent Acute myocardial infarction 55 or 57yo Lung cancer Social History Social History Social History: Smoking packs per day: 1.5 Smoking cigarettes per day: 30.0 Smoking status: Current every day smoker Tobacco type: cigarettes Second hand tobacco smoke exposure: Yes Additional smoking assessment comments: 1.5-2 PPD Alcohol intake: never Substance use: never Lack of Transportation: No Lack of Food: Never True Current Housing: I Have Housing Concerned About Future Housing: No Difficulty Paying Gas/Electric Bills: No Difficulty Paying for Meds: No Currently Unemployed: No Education: High School Diploma/GED Difficulty w/ Childcare or Family Care: No Living arrangements: with family Additional living arrangements comments: Occupation/Education: occupation Spiritual care concerns: No Meds Home Medications and Allergies Home Medications ?Medication ?Instructions ?Recorded ?Confirmed ?Type No Home Medications 06/07/25 06/07/25 H istory Allergies Allergy/AdvReac Type Severity Reaction Status Date / Time No Known Allergies Allergy Verified 06/07/25 11:55 Vital Signs Vital Signs - 24 hr 06/07/25 11:47 06/07/25 11:51 06/07/25 11:52 Temperature 36.5 C Pulse Rate 88 89 Respiratory Rate 14 13 Blood Pressure 157/107 H Pulse Oximetry 97 98 98 Oxygen Delivery Room Air Room Air 06/07/25 12:00 06/07/25 12:15 06/07/25 12:16 Temperature Pulse Rate 92 84 83 Respiratory Rate 20 29 H 26 H Blood Pressure 130/90 Pulse Oximetry 98 95 95 Oxygen Delivery 06/07/25 12:31 06/07/25 12:45 06/07/25 12:46 Temperature Pulse Rate 92 80 79 Respiratory Rate 21 H 25 H 21 H Blood Pressure 131/85 Pulse Oximetry 97 96 98 Oxygen Delivery 06/07/25 13:00 06/07/25 13:01 06/07/25 13:15 Temperature Pulse Rate 72 71 68 Respiratory Rate 27 H 26 H 25 H Blood Pressure 122/88 121/88 Pulse Oximetry 97 97 96 Oxygen Delivery 06/07/25 13:16 06/07/25 13:30 06/07/25 13:31 Temperature Pulse Rate 72 69 71 Respiratory Rate 26 H 27 H 27 H Blood Pressure 117/77 Pulse Oximetry 99 95 97 Oxygen Delivery 06/07/25 13:45 06/07/25 13:46 06/07/25 14:00 Temperature Pulse Rate 71 68 72 Respiratory Rate 26 H 27 H 24 H Blood Pressure 123/84 119/87 Pulse Oximetry 96 97 97 Oxygen Delivery 06/07/25 14:01 06/07/25 14:24 06/07/25 14:30 Temperature Pulse Rate 64 75 Respiratory Rate 21 H 17 Blood Pressure Pulse Oximetry 96 99 98 Oxygen Delivery 06/07/25 14:45 06/07/25 15:00 06/07/25 15:15 Temperature Pulse Rate 73 69 70 Respiratory Rate 16 27 H 26 H Blood Pressure Pulse Oximetry 99 99 98 Oxygen Delivery 06/07/25 15:30 06/07/25 17:42 06/07/25 18:00 Temperature 36.8 C Pulse Rate 66 65 71 Respiratory Rate 26 H 16 Blood Pressure 136/86 Pulse Oximetry 97 97 Oxygen Delivery 06/07/25 19:23 06/07/25 20:00 06/07/25 22:00 Temperature Pulse Rate 72 68 68 Respiratory Rate 18 Blood Pressure 124/69 Pulse Oximetry 96 Oxygen Delivery 06/07/25 23:11 06/08/25 00:00 06/08/25 02:00 Temperature 36.7 C Pulse Rate 72 66 69 Respiratory Rate 14 Blood Pressure 115/71 Pulse Oximetry 97 Oxygen Delivery 06/08/25 04:00 06/08/25 04:00 06/08/25 06:34 Temperature 36.9 C Pulse Rate 61 61 62 Respiratory Rate 14 Blood Pressure 129/79 Pulse Oximetry 98 Oxygen Delivery 06/08/25 08:16 Temperature 36.7 C Pulse Rate 57 L Respiratory Rate 20 Blood Pressure 126/73 Pulse Oximetry 97 Oxygen Delivery Exam 2 Const: General: comfortable HENMT: Mouth: Yes moist mucous membranes Eyes: EOM: EOMs intact bilaterally Neck: Neck: no JVD Resp: Effort & Inspection: normal respiratory effort Auscultation: clear to auscultation bilaterally Cardio: Rate: bradycardic Rhythm: regular rhythm Heart sounds: no murmurs Neuro: Speech: normal speech Extrem: General: normal to inspection Results Labs and Meds 06/08/25 07:38 06/08/25 07:38 Lab results: Cardiac Enzymes 06/07/25 06/07/25 06/07/25 Range/Units 11:54 14:25 18:24 AST 34 (17-59) U/L Troponin I < 0.012 0.647 H* D 3.730 H* D (0.000-0.034) ng/mL 06/07/25 06/08/25 Range/Units 22:59 01:00 AST 43 (17-59) U/L Troponin I 2.670 H* D (0.000-0.034) ng/mL Coagulation 06/07/25 06/08/25 06/08/25 Range/Units 11:54 01:00 07:38 PT 13.1 (11.1-14.7) Seconds APTT 27.9 35.9 33.0 (22.3-36.8) Seconds CBC 06/07/25 06/08/25 06/08/25 Range/Units 11:53 01:00 07:38 WBC 12.1 H 13.1 H 8.3 (4.5-10.0) K/mm3 RBC 5.51 5.36 5.62 (4.6-6.20) M/mm3 Hgb 17.2 17.0 17.5 (14.0-18.0) g/dL Hct 50.1 49.4 51.8 (42.0-52.0) % Plt Count 229 212 217 (150-375) k/mm3 Lymph # (Auto) 3.11 3.63 H 2.72 (0.9-3.2) K/mm3 Mcd[place] # (Auto) 0.7 H 1.3 H 0.6 (0.1-0.6) K/mm3 Eos # (Auto) 0.5 H 0.6 H 0.5 H (0-0.3) K/mm3 Baso # (Auto) 0.1 0.1 0.1 (0.0-0.1) K/mm3 Comprehensive Metabolic Panel 06/07/25 06/08/25 06/08/25 Range/Units 11:54 01:00 07:38 Sodium 138 137 137 (137-145) mmol/L Potassium 3.8 3.8 4.2 (3.4-5.0) mmol/L Chloride 106 107 106 (98-107) mmol/L Carbon Dioxide 22 24 25 (22-30) mmol/L BUN 13 14 12 (9-20) mg/dL Creatinine 1.02 0.84 0.85 (0.7-1.3) mg/dL Glucose 123 H 98 93 (65-110) mg/dL Calcium 9.2 8.9 9.3 (8.4-10.2) mg/dL AST 34 43 (17-59) U/L ALT 29 27 (6-50) U/L Alkaline Phosphatase 75 85 (38-126) U/L Total Protein 7.6 7.0 (6.3-8.2) g/dL Albumin 4.5 4.0 (3.5-5.1) g/dL Intake and Output 06/07/25 06/08/25 06/08/25 23:59 07:59 15:59 Intake Total 327.7 106.6 Balance 327.7 106.6 Intake: IV 87.7 106.6 Heparin Sod/D5w 100 Units/ml 25 87.7 106.6 ,000 units In 250 ml @ 1,400 UNITS/HR 14 mls/hr IV CONT . [id number] [facility] Rx#:[id number] Oral 240 Other: # Unmeasured Voids 2 Patient Weight 06/08/25 23:59 Weight 92.1 kg
--- NOTE | 2025-06-08 09:34 | WPDHPUPDATE1 ---
History and Physical Update Update Date/Time: 06/08/25 08:34 History and Physical has been reviewed, including an updated exam of the patient. There are NO changes in the patient's condition. Risks, benefits, and alternatives have been discussed and questions answered. Patient agrees to proceed with procedure.
--- NOTE | 2025-06-08 09:34 | WPDMODSED ---
Moderate Sedation Note-Pt Data Patient Data Allergies Allergy/AdvReac Type Severity Reaction Status Date / Time No Known Allergies Allergy Verified 06/07/25 11:55 Home Medications ?Medication ?Instructions ?Recorded ?Confirmed ?Type No Home Medications 06/07/25 06/07/25 History Current Medications: Active Medications Acetaminophen (Acetaminophen 325 Mg Tablet) 650 mg PO Q4H PRN PRN Reason: Mild Pain (1-3) or Fever Aspirin (Aspirin 81 Mg Enteric Tablet) 81 mg PO QAM [facility] Last Admin: 06/08/25 08:34 Dose: 81 mg Atorvastatin Calcium (Atorvastatin 40 Mg Tablet) 40 mg PO QHS MICHA Heparin Sodium (Porcine) (Heparin Sodium 5,000 Units/Ml Vial) 4,000 units IV PUSH PRN PRN PRN Reason: aPTT less than 55 seconds Last Admin: 06/08/25 08:37 Dose: 4,000 units Heparin Sodium (Porcine) (Heparin Sodium 5,000 Units/Ml Vial) 3,500 units IV PUSH PRN PRN PRN Reason: aPTT 55 - 70 seconds Heparin Sodium/Dextrose (Heparin Sodium/D5w 100 Units/Ml) 25,000 units in 250 mls @ 0 mls/hr IV CONT .Q0M [facility]; Protocol Last Titration: 06/08/25 09:03 Dose: 0 units/hr, 0 mls/hr Nicotine (Nicotine (*Pbkc) 21 Mg Patch) 1 patch TRANSDERM DAILY PRN PRN Reason: Nicotine Cravings Nitroglycerin (Nitroglycerin Sl 0.4 Mg Tablet) 0.4 mg SUBLINGUAL Q5MIN PRN PRN Reason: Chest Pain Ondansetron HCl (Ondansetron Inj 4 Mg/2 Ml Vial) 4 mg IV PUSH Q4H PRN PRN Reason: Nausea Perflutren Lipid Microsphere (Perflutren Lipid Microspheres 1.5 Ml Vial Diluted To 10 Ml Total Volume) 0 ml IV PUSH ONCE PRN; Protocol PRN Reason: adequate visualization Stop: 06/11/25 09:31 Sedation/Anesthesia: No previous sedation/anesthesia problems (including family history). [facility] Past Medical History Medical History (Updated 06/08/25 @ 09:34 by Aleksandar Rene MD) Tobacco use GERD (gastroesophageal reflux disease) HLD (hyperlipidemia) Surgical History Surgical History No history of previous surgery Family History Family History Father , 62yo Acute myocardial infarction, Onset Age: 62 Mother H/O heart artery stent Acute myocardial infarction 55 or 57yo Lung cancer Social History Social History Social History: Smoking packs per day: 1.5 Smoking cigarettes per day: 30.0 Smoking status: Current every day smoker Tobacco type: cigarettes Second hand tobacco smoke exposure: Yes Additional smoking assessment comments: 1.5-2 PPD Alcohol intake: never Substance use: never Lack of Transportation: No Lack of Food: Never True Current Housing: I Have Housing Concerned About Future Housing: No Difficulty Paying Gas/Electric Bills: No Difficulty Paying for Meds: No Currently Unemployed: No Education: High School Diploma/GED Difficulty w/ Childcare or Family Care: No Living arrangements: with family Additional living arrangements comments: Occupation/Education: occupation Spiritual care concerns: No Mod Sed Physical Exam Physical Exam Pre Procedural Exam: Normal: Lungs, Heart Size and Heart Rhythm and Variation: Heart Rate (bradycardic) Hours since solid foods: 12 Hours since liquid intake: 12 Mallampati Classification: class II Internal Medicine - PN: Obj Da Vital Signs Vital Signs: Vital Signs - 24 hr 06/07/25 11:47 06/07/25 11:51 06/07/25 11:52 Temperature 36.5 C Pulse Rate 88 89 Respiratory Rate 14 13 Blood Pressure 157/107 H Pulse Oximetry 97 98 98 Oxygen Delivery Room Air Room Air 06/07/25 12:00 06/07/25 12:15 06/07/25 12:16 Temperature Pulse Rate 92 84 83 Respiratory Rate 20 29 H 26 H Blood Pressure 130/90 Pulse Oximetry 98 95 95 Oxygen Delivery 06/07/25 12:31 06/07/25 12:45 06/07/25 12:46 Temperature Pulse Rate 92 80 79 Respiratory Rate 21 H 25 H 21 H Blood Pressure 131/85 Pulse Oximetry 97 96 98 Oxygen Delivery 06/07/25 13:00 06/07/25 13:01 06/07/25 13:15 Temperature Pulse Rate 72 71 68 Respiratory Rate 27 H 26 H 25 H Blood Pressure 122/88 121/88 Pulse Oximetry 97 97 96 Oxygen Delivery 06/07/25 13:16 06/07/25 13:30 06/07/25 13:31 Temperature Pulse Rate 72 69 71 Respiratory Rate 26 H 27 H 27 H Blood Pressure 117/77 Pulse Oximetry 99 95 97 Oxygen Delivery 06/07/25 13:45 06/07/25 13:46 06/07/25 14:00 Temperature Pulse Rate 71 68 72 Respiratory Rate 26 H 27 H 24 H Blood Pressure 123/84 119/87 Pulse Oximetry 96 97 97 Oxygen Delivery 06/07/25 14:01 06/07/25 14:24 06/07/25 14:30 Temperature Pulse Rate 64 75 Respiratory Rate 21 H 17 Blood Pressure Pulse Oximetry 96 99 98 Oxygen Delivery 06/07/25 14:45 06/07/25 15:00 06/07/25 15:15 Temperature Pulse Rate 73 69 70 Respiratory Rate 16 27 H 26 H Blood Pressure Pulse Oximetry 99 99 98 Oxygen Delivery 06/07/25 15:30 06/07/25 17:42 06/07/25 18:00 Temperature 36.8 C Pulse Rate 66 65 71 Respiratory Rate 26 H 16 Blood Pressure 136/86 Pulse Oximetry 97 97 Oxygen Delivery 06/07/25 19:23 06/07/25 20:00 06/07/25 22:00 Temperature Pulse Rate 72 68 68 Respiratory Rate 18 Blood Pressure 124/69 Pulse Oximetry 96 Oxygen Delivery 06/07/25 23:11 06/08/25 00:00 06/08/25 02:00 Temperature 36.7 C Pulse Rate 72 66 69 Respiratory Rate 14 Blood Pressure 115/71 Pulse Oximetry 97 Oxygen Delivery 06/08/25 04:00 06/08/25 04:00 06/08/25 06:34 Temperature 36.9 C Pulse Rate 61 61 62 Respiratory Rate 14 Blood Pressure 129/79 Pulse Oximetry 98 Oxygen Delivery 06/08/25 08:16 Temperature 36.7 C Pulse Rate 57 L Respiratory Rate 20 Blood Pressure 126/73 Pulse Oximetry 97 Oxygen Delivery Intake/Output Intake/Output: Intake & Output 06/05/25 06/06/25 06/07/25 06/08/25 23:59 23:59 23:59 23:59 Intake Total 434.3 Balance 434.3 Meds/Results Medications: Active Medications Generic Name Dose Route Start Last Admin Trade Name Freq PRN Reason Stop Dose Admin Acetaminophen 650 mg 06/07/25 16:36 Acetaminophen 325 Mg Tablet PO Q4H PRN Mild Pain (1-3) or Fever Aspirin 81 mg 06/08/25 09:00 06/08/25 08:34 Aspirin 81 Mg Enteric Tablet PO 81 mg QAM MICHA Administration Atorvastatin Calcium 40 mg 06/08/25 21:00 Atorvastatin 40 Mg Tablet PO QHS MICHA Heparin Sodium (Porcine) 4,000 units 06/07/25 16:28 06/08/25 08:37 Heparin Sodium 5,000 Units/Ml Vial IV PUSH 4,000 units PRN PRN Administration aPTT less than 55 seconds Heparin Sodium (Porcine) 3,500 units 06/07/25 16:28 Heparin Sodium 5,000 Units/Ml Vial IV PUSH PRN PRN aPTT 55 - 70 seconds Heparin Sodium/Dextrose 25,000 units in 250 mls @ 0 mls/hr 06/07/25 16:30 06/08/25 09:03 Heparin Sodium/D5w 100 Units/Ml IV CONT 0 units/hr .Q0M MICHA 0 mls/hr Protocol Titration 0 UNITS/HR Nicotine 1 patch 06/07/25 22:21 Nicotine (*Pbkc) 21 Mg Patch TRANSDERM DAILY PRN Nicotine Cravings Nitroglycerin 0.4 mg 06/07/25 16:36 Nitroglycerin Sl 0.4 Mg Tablet SUBLINGUAL Q5MIN PRN Chest Pain Ondansetron HCl 4 mg 06/07/25 16:36 Ondansetron Inj 4 Mg/2 Ml Vial IV PUSH Q4H PRN Nausea Perflutren Lipid Microsphere 0 ml 06/08/25 09:31 Perflutren Lipid Microspheres 1.5 Ml Vial Diluted To 10 Ml Total Volume IV PUSH 06/11/25 09:31 ONCE PRN adequate visualization Protocol Radiology Results: ITS Impressions Chest X-Ray 06/07/25 12:28 IMPRESSION: 1. No acute cardiopulmonary findings given portable technique. Can consider PA and lateral films with deep inspiration if clinical suspicion persists. Labs 06/08/25 07:38 06/08/25 07:38 Labs: Laboratory Results - last 24 hr 06/07/25 06/07/25 06/07/25 11:53 11:54 14:25 WBC 12.1 H RBC 5.51 Hgb 17.2 Hct 50.1 MCV 90.9 MCH 31.2 MCHC 34.3 RDW 13.2 Plt Count 229 MPV 9.8 Immature Gran % (Auto) 0.5 Neut % (Auto) 62.7 Lymph % (Auto) 25.6 [place] % (Auto) 6.1 Eos % (Auto) 4.0 Baso % (Auto) 1.1 Lymph # (Auto) 3.11 [place] # (Auto) 0.7 H Eos # (Auto) 0.5 H Baso # (Auto) 0.1 Abs Immat Gran (auto) 0.06 H Absolute Neuts (auto) 7.6 H Absolute Nucleated RBC 0.000 Nucleated RBC % 0.0 PT 13.1 INR 1.0 APTT 27.9 Sodium 138 Potassium 3.8 Chloride 106 Carbon Dioxide 22 Anion Gap 10 BUN 13 Creatinine 1.02 Estim Creat Clear Calc 95 Estimated GFR > 60 Glucose 123 H Calcium 9.2 Phosphorus Magnesium Total Bilirubin 0.4 AST 34 ALT 29 Alkaline Phosphatase 75 Troponin I < 0.012 0.647 H* D Total Protein 7.6 Albumin 4.5 Lipase 25 Urine Color Urine Appearance Urine pH Ur Specific [place] Urine Protein Urine Glucose (UA) Urine Ketones Ur Blood (Man) Urine Nitrate Urine Bilirubin Urine Urobilinogen Leukocyte Esterase Rfl Urine RBC Urine WBC Ur Squamous Epith Cells Urine Bacteria Urine Casts Urine Opiates Screen Urine Methadone Screen Ur Barbiturates Screen Ur Phencyclidine Scrn Ur Amphetamine Screen U Benzodiazepines Scrn Urine Cocaine Screen U Cannabinoids Screen 06/07/25 06/07/25 06/07/25 15:49 18:24 22:59 WBC RBC Hgb Hct MCV MCH MCHC RDW Plt Count MPV Immature Gran % (Auto) Neut % (Auto) Lymph % (Auto) [place] % (Auto) Eos % (Auto) Baso % (Auto) Lymph # (Auto) [place] # (Auto) Eos # (Auto) Baso # (Auto) Abs Immat Gran (auto) Absolute Neuts (auto) Absolute Nucleated RBC Nucleated RBC % PT INR APTT Sodium Potassium Chloride Carbon Dioxide Anion Gap BUN Creatinine Estim Creat Clear Calc Estimated GFR Glucose Calcium Phosphorus Magnesium Total Bilirubin AST ALT Alkaline Phosphatase Troponin I 3.730 H* D 2.670 H* D Total Protein Albumin Lipase Urine Color Dark yellow Urine Appearance Clear Urine pH 5.5 Ur Specific [place] 1.034 Urine Protein Trace Urine Glucose (UA) Negative Urine Ketones Trace H Ur Blood (Man) Negative Urine Nitrate Negative Urine Bilirubin Negative Urine Urobilinogen 1.0 Leukocyte Esterase Rfl Negative Urine RBC 0-2 Urine WBC 0-5 Ur Squamous Epith Cells None seen Urine Bacteria None seen Urine Casts 0-2 Urine Opiates Screen Negative Urine Methadone Screen Negative Ur Barbiturates Screen Negative Ur Phencyclidine Scrn Negative Ur Amphetamine Screen Negative U Benzodiazepines Scrn Negative Urine Cocaine Screen Negative U Cannabinoids Screen Negative 06/08/25 06/08/25 01:00 07:38 WBC 13.1 H 8.3 RBC 5.36 5.62 Hgb 17.0 17.5 Hct 49.4 51.8 MCV 92.2 92.2 MCH 31.7 31.1 MCHC 34.4 33.8 RDW 13.4 13.4 Plt Count 212 217 MPV 10.1 10.2 Immature Gran % (Auto) 4.3 H 0.4 Neut % (Auto) 52.8 52.8 Lymph % (Auto) 27.8 32.9 [place] % (Auto) 10.0 H 6.9 Eos % (Auto) 4.3 5.7 H Baso % (Auto) 0.8 1.3 H Lymph # (Auto) 3.63 H 2.72 [place] # (Auto) 1.3 H 0.6 Eos # (Auto) 0.6 H 0.5 H Baso # (Auto) 0.1 0.1 Abs Immat Gran (auto) 0.56 H 0.03 Absolute Neuts (auto) 6.9 H 4.4 Absolute Nucleated RBC 0.000 0.000 Nucleated RBC % 0.0 0.0 PT INR APTT 35.9 33.0 Sodium 137 137 Potassium 3.8 4.2 Chloride 107 106 Carbon Dioxide 24 25 Anion Gap 6 6 BUN 14 12 Creatinine 0.84 0.85 Estim Creat Clear Calc 114 113 Estimated GFR > 60 > 60 Glucose 98 93 Calcium 8.9 9.3 Phosphorus 3.0 Magnesium 2.1 Total Bilirubin 0.3 AST 43 ALT 27 Alkaline Phosphatase 85 Troponin I Total Protein 7.0 Albumin 4.0 Lipase Urine Color Urine Appearance Urine pH Ur Specific [place] Urine Protein Urine Glucose (UA) Urine Ketones Ur Blood (Man) Urine Nitrate Urine Bilirubin Urine Urobilinogen Leukocyte Esterase Rfl Urine RBC Urine WBC Ur Squamous Epith Cells Urine Bacteria Urine Casts Urine Opiates Screen Urine Methadone Screen Ur Barbiturates Screen Ur Phencyclidine Scrn Ur Amphetamine Screen U Benzodiazepines Scrn Urine Cocaine Screen U Cannabinoids Screen ASA Classification/Sedation ASA Classification/Sedation ASA Class: III Emergent: No Risks: Risks, benefits and alternatives explained and patient/family accepted plan for sedation. Patient re-evaluated immediately prior to sedation.
--- NOTE | 2025-06-08 10:07 | P.PCNCC_ITS ---
Cardiac Cath Procedure Note Date of procedure:: 06/08/25 Performing physician:: CATHETERIZATION LABORATORY REPORT Procedure Date: 06/08/2025 Referring Physician: Dr. Bear Anesthesia: Versed and Fentanyl were ordered and given in my presence at 0951, procedure ended at 1002. Supervision of nurse monitored moderate sedation with 2mg Versed and 100mcg Fentanyl was provided for 11 minutes. Pre-op Diagnosis: NSTEMI Post-op Diagnosis: NSTEMI Procedure(s): Left heart catheterization with coronary angiography Access Site: Right radial artery Brief History and Clinical Indications: 40-year-old man with strong family history of coronary artery disease and active tobacco abuse presented with chest pain whose clinical presentation was consistent with NSTEMI for which he was brought to the cardiac catheterization lab to define his coronary anatomy with possible PCI. All risks, benefits and alternatives to left heart catheterization with or without percutaneous coronary intervention was discussed at length with the patient. Risk of complications including but not limited to bleeding, infection, arrhythmia, stroke, worsening kidney function, blood loss, groin hematoma, limb loss, emergency coronary artery bypass grafting, and even were discussed with the patient and all questions were answered. The patient understood and wished to proceed. Time out called, patient name, date of , medical record number, allergies, procedure performed, identify Educational Aid, patient and staff member concurred with accurate data, procedure carried on. Findings: LEFT HEART CATHETERIZATION FINDINGS: 1. Left main: The left main coronary artery has 20-30% stenosis at its ostium and 70% stenosis in its midbody. There was dampening of pressure during left main coronary artery engagement suggestive of significant obstructive in in the left coronary system. 2. Left anterior descending: The LAD in its proximal to mid body has a 95% stenosis that is the culprit of his NSTEMI. The remainder of the vessel and its diagonal branches are free of angiographic high-grade stenosis. 3. Left circumflex: The left circumflex artery is a codominant vessel. The left circumflex and its marginal branches along with the left PDA has luminal irregularities. 4. Right coronary artery: The RCA is a large dominant vessel with diffuse 10% stenosis in its proximal body and the remainder of the vessel and its branches have luminal irregularities. 5. Left ventricle: A. End-diastolic pressure 18 mmHg. B. LV gram deferred. C. No significant gradient across aortic valve on catheter pullback. 6. Opening AO pressure 115/72 and closing AO pressure 102/63 Description of Procedure: Informed consent signed and placed in the chart. Patient transferred to collaborating supervising physician room. Prepped and draped in usual sterile fashion. 2% lidocaine injected subcutaneously in right wrist area. 22-gauge venipuncture catheter used to access the right radial artery with the Seldinger technique. 6-FR slender sheath placed in right radial artery. Nitroglycerin 200mcg, Verapamil 2.5mg, and Heparin 5000U was given intraarterial through the sheath. J wire advanced under fluoroscopy. 5F Ultra diagnostic catheter engaged Left Main Coronary Artery and Right Coronary Artery. Multiple orthogonal angiogram obtained and reviewed. 5F Ultra diagnostic catheter crossed aortic valve to obtain LVEDP, LV angiogram deferred. Hemostasis was achieved by application of TR band. Assessment: Severe coronary artery disease Post Operative Condition: Stable No significant blood loss Disposition: Floor Plan: Plan to transfer for 2V CABG to bypass the LM and proximal to mid LAD. Echocardiogram. Can resume heparin drip without bolus at 4pm if no bleeding from right radial access site. Aleksandar Rene Interventional Cardiology
[2025-06-08] MEDS: SODIUM CHLORIDE 0.9% IV 1,000 ML 125 ML IV CONT (10:48)
[2025-06-08 13:26] LABS: Cholesterol 238 mg/dL (0-200); HDL Direct 33 mg/dL; Triglycerides 163 mg/dL (<150)
--- NOTE | 2025-06-08 13:35 | SUR.PHASEII ---
This RN gave report to Chanel HORN in IMU. RN communicated pt was being transferred to [facility] for bypass surgery. Chanel HORN was instructed to resume heparin drip at 1600 per MD Rene's note. No further questions or concerns.
--- NOTE | 2025-06-08 14:31 | PC.NURSE ---
Addendum entered by Chanel Puckett RN 06/08/25 14:43: Report received from JUSTINA Wahl @ [phone] Original Note: Pt returned from cardiac cath via wheelchair. Family at bedside
[2025-06-08 15:36] LABS: Hemoglobin A1C 5.2 % (<5.7)
--- NOTE | 2025-06-08 16:22 | P.TS_ITS ---
Transfer Discharge Sum: Prov Provider Date of admission: 06/07/25 17:43 Primary care physician: UNKNOWN,DOCTOR Admitting clinician: Robbin Bear MD Attending physician on admission: Ling Stack Consults: 06/07/25 Consult to Physician Routine Comment: spoke with exchange @190(ER,) Consulting Provider: Kingston Robb Reason for consultation: NSTEMI; + troponin; CP earlier responded to NTG Has provider been notified: Yes Attending physician on discharge: Ling Stack Discharging clinician: Ling Stack Anticipated date of transfer: 06/08/25 DS: Admitting Diagnosis Discharge Date 06/08/2025 Admitting Diagnosis Chest pain DS: Discharge Diagnosis Discharge Diagnosis (1) Acute non-ST elevation myocardial infarction (NSTEMI): Code(s): I21.4 - Non-ST elevation (NSTEMI) myocardial infarction Status: Acute (2) Chest pain: Code(s): R07.9 - Chest pain, unspecified Status: Acute (3) HLD (hyperlipidemia): Code(s): E78.5 - Hyperlipidemia, unspecified Status: Acute (4) Tobacco use: Code(s): Z72.0 - Tobacco use Status: Acute Transfer Discharge Sum: Med Medications Active and Home Medications: Home Medications No Home Medications 06/07/25 [History Confirmed 06/07/25] Active Medications Acetaminophen (Acetaminophen 325 Mg Tablet) 650 mg PO Q4H PRN PRN Reason: Mild Pain (1-3) or Fever Aspirin (Aspirin 81 Mg Enteric Tablet) 81 mg PO QAM [facility] Last Admin: 06/08/25 08:34 Dose: 81 mg Atorvastatin Calcium (Atorvastatin 40 Mg Tablet) 40 mg PO QHS [facility] Heparin Sodium (Porcine) (Heparin Sodium 5,000 Units/Ml Vial) 4,000 units IV PUSH PRN PRN PRN Reason: aPTT less than 55 seconds Last Admin: 06/08/25 08:37 Dose: 4,000 units Heparin Sodium (Porcine) (Heparin Sodium 5,000 Units/Ml Vial) 3,500 units IV PUSH PRN PRN PRN Reason: aPTT 55 - 70 seconds Heparin Sodium/Dextrose (Heparin Sodium/D5w 100 Units/Ml) 25,000 units in 250 mls @ 18 mls/hr IV CONT .[id number] [facility]; Protocol Last Titration: 06/08/25 16:10 Dose: 1,800 units/hr, 18 mls/hr Sodium Chloride (Normal Saline Iv) 1,000 mls @ 125 mls/hr IV CONT .Q8H ONE Stop: 06/08/25 18:04 Last Admin: 06/08/25 10:48 Dose: 125 mls/hr Nicotine (Nicotine (*Pbkc) 21 Mg Patch) 1 patch TRANSDERM DAILY PRN PRN Reason: Nicotine Cravings Nitroglycerin (Nitroglycerin Sl 0.4 Mg Tablet) 0.4 mg SUBLINGUAL Q5MIN PRN PRN Reason: Chest Pain Ondansetron HCl (Ondansetron Inj 4 Mg/2 Ml Vial) 4 mg IV PUSH Q4H PRN PRN Reason: Nausea Perflutren Lipid Microsphere (Perflutren Lipid Microspheres 1.5 Ml Vial Diluted To 10 Ml Total Volume) 0 ml IV PUSH ONCE PRN; Protocol PRN Reason: adequate visualization Stop: 06/11/25 09:31 Transfer Discharge Sum: Hosp Hospital Course Hospital course: [place] is a 40 year old male This is a pleasant 40-year-old male with a strong family history of coronary artery disease, personal active tobacco abuse who presents to [facility] on 06/07/2025 with chest discomfort. He is accompanied by his who he lives with at home. Described as substernal chest pain lasting a few minutes, spontaneous resolved and then reoccurred on ambulation. Was given sublingual nitro which alleviated his chest discomfort partially, then fully resolved after heparin GTT was initiated. EKG demonstrated sinus rhythm, possible left atrial enlargement, left anterior fascicular block, age-indeterminate anteroseptal myocardial infarction. Initial troponin 0.647, increasing and peaking at 3.73. Underwent left heart cardiac catheterization on 06/08/[address] Rene with the following findings: 1. Left main: The left main coronary artery has 20-30% stenosis at its ostium and 70% stenosis in its midbody. There was dampening of pressure during left main coronary artery engagement suggestive of significant obstructive in in the left coronary system. 2. Left anterior descending: The LAD in its proximal to mid body has a 95% stenosis that is the culprit of his NSTEMI. The remainder of the vessel and its diagonal branches are free of angiographic high-grade stenosis. 3. Left circumflex: The left circumflex artery is a codominant vessel. The left circumflex and its marginal branches along with the left PDA has luminal irregularities. 4. Right coronary artery: The RCA is a large dominant vessel with diffuse 10% stenosis in its proximal body and the remainder of the vessel and its branches have luminal irregularities. 5. Left ventricle: A. End-diastolic pressure 18 mmHg. B. LV gram deferred. C. No significant gradient across aortic valve on catheter pullback. 6. Opening AO pressure 115/72 and closing AO pressure 102/63 ----- Postprocedure, patient continues to be chest pain free. Heparin GTT has been restarted as there has been no bleeding from the right radial access site. He is in stable condition and plan is to transfer today on 06/08/2025 to tertiary facility for 2V CABG to bypass the LM and proximal to mid LAD. TTE pending. Triglycerides 163, cholesterol 238, LDL 185, HDL 33. Continuing daily baby aspirin and atorvastatin 40 mg p.o. q.h.s.. Discussed with the patient and at bedside about the dangers of tobacco abuse. Patient is ready to quit now. Patient was full code during the admission. Patient Condition: Improved Time Spent with Patient Time attestation: Total time spent providing and/or coordinating transfer services: Total time spent: Greater than 30 minutes Exam Const: General: comfortable and no acute distress Other: A&O x3 HENMT: Mouth: Yes moist mucous membranes Eyes: Pupils: Equal, round and reactive pupils present Neck: Neck: supple Resp: Effort & Inspection: normal respiratory effort Auscultation: clear to auscultation bilaterally Cardio: Rate: regular rate Rhythm: regular rhythm GI: Inspection: non-distended GI Palp: Yes Soft to palpation : General: Yes bladder normal to palpation Neuro: Motor exam (neuro): 5/5 motor strength present throughout Extrem: General: no edema DS: Data Data Completed and Pending Labs on day of discharge: Labs from last 24 hours 06/08/25 06/08/25 06/08/25 07:38 01:00 00:55 WBC 8.3 13.1 H RBC 5.62 5.36 Hgb 17.5 17.0 Hct 51.8 49.4 MCV 92.2 92.2 MCH 31.1 31.7 MCHC 33.8 34.4 RDW 13.4 13.4 Plt Count 217 212 MPV 10.2 10.1 Immature Gran % (Auto) 0.4 4.3 H Neut % (Auto) 52.8 52.8 Lymph % (Auto) 32.9 27.8 [place] % (Auto) 6.9 10.0 H Eos % (Auto) 5.7 H 4.3 Baso % (Auto) 1.3 H 0.8 Lymph # (Auto) 2.72 3.63 H [place] # (Auto) 0.6 1.3 H Eos # (Auto) 0.5 H 0.6 H Baso # (Auto) 0.1 0.1 Abs Immat Gran (auto) 0.03 0.56 H Absolute Neuts (auto) 4.4 6.9 H Absolute Nucleated RBC 0.000 0.000 Nucleated RBC % 0.0 0.0 APTT 33.0 35.9 Sodium 137 137 Potassium 4.2 3.8 Chloride 106 107 Carbon Dioxide 25 24 Anion Gap 6 6 BUN 12 14 Creatinine 0.85 0.84 Estim Creat Clear Calc 113 114 Estimated GFR > 60 > 60 Glucose 93 98 Hemoglobin A1c 5.2 Calcium 9.3 8.9 Phosphorus 3.0 Magnesium 2.1 Total Bilirubin 0.3 AST 43 ALT 27 Alkaline Phosphatase 85 Troponin I Total Protein 7.0 Albumin 4.0 Triglycerides 163 H Cholesterol 238 H LDL Cholesterol Direct 185 HDL Direct 33 Urine Opiates Screen Urine Methadone Screen Ur Barbiturates Screen Ur Phencyclidine Scrn Ur Amphetamine Screen U Benzodiazepines Scrn Urine Cocaine Screen U Cannabinoids Screen 06/07/25 06/07/25 06/07/25 22:59 18:24 15:49 WBC RBC Hgb Hct MCV MCH MCHC RDW Plt Count MPV Immature Gran % (Auto) Neut % (Auto) Lymph % (Auto) [place] % (Auto) Eos % (Auto) Baso % (Auto) Lymph # (Auto) [place] # (Auto) Eos # (Auto) Baso # (Auto) Abs Immat Gran (auto) Absolute Neuts (auto) Absolute Nucleated RBC Nucleated RBC % APTT Sodium Potassium Chloride Carbon Dioxide Anion Gap BUN Creatinine Estim Creat Clear Calc Estimated GFR Glucose Hemoglobin A1c Calcium Phosphorus Magnesium Total Bilirubin AST ALT Alkaline Phosphatase Troponin I 2.670 H* D 3.730 H* D Total Protein Albumin Triglycerides Cholesterol LDL Cholesterol Direct HDL Direct Urine Opiates Screen Negative Urine Methadone Screen Negative Ur Barbiturates Screen Negative Ur Phencyclidine Scrn Negative Ur Amphetamine Screen Negative U Benzodiazepines Scrn Negative Urine Cocaine Screen Negative U Cannabinoids Screen Negative
--- NOTE | 2025-06-08 17:14 | PC.NURSE ---
Pt discharged to [facility] [address] Bed 1 via stretcher [facility]. Heparin gtt infusing. Report called to JUSTINA Novak @ [phone]. Family at bedside.
== END 2025-06-08 17:18 | disposition short-term general hospital (02) | DRG 282 ==
LOC: ANHED 13:24 → ANHIMU 17:03
PROVIDERS: Emergency Medicine; Internal Medicine; Nurse Practitioner; Student in an Organized Health Care Education/Training Program; Admitting Provider Internal Medicine; Emergency Provider Student in an Organized Health Care Education/Training Program; Visit Provider General Practice
PROC: 4A023N7 Measurement of Cardiac Sampling and Pressure, Left Heart, Percutaneous Approach (ICD-10-PCS; CPT 93452; principal; 2025-06-08 09:15)
DX: I21.4 Non-ST elevation (NSTEMI) myocardial infarction (principal); I25.10 Atherosclerotic heart disease of native coronary artery without angina pectoris; F17.210 Nicotine dependence, cigarettes, uncomplicated; K21.9 Gastro-esophageal reflux disease without esophagitis; E78.5 Hyperlipidemia, unspecified; Z82.49 Family history of ischemic heart disease and other diseases of the circulatory system
CPT/HCPCS: 36415; 71045; 80048; 80053; 80061; 80307; 81001; 83036; 83690; 83735; 84100; 84484; 85025; 85610; 85730; 93005; 93306; 93458; 96374; 96375; 99285; A9270; C1769; C1887; C1894; G0378; J1644; J2003; J2250; J2305; J3010; J7030; J7040